=== PATIENT | male | born 1935 | race African-American/Black ===

== ENCOUNTER 2019-05-10 11:15 | Inpatient (IN) | payer OTHER ==
--- NOTE | 2019-05-10 11:51 | PDOC ---
History of Present Illness - General Chief Complaint: Abnormal Lab Results (Outside) Stated Complaint: BLOOD TRANSFUSION Time Seen by Provider: 05/10/19 11:51 - History of Present Illness Initial Comments: 05/10/19 12:14 84 year old man with a history of dementia, venous insufficiency, HLD, GERD, CVA with R sided hemiplegia who presents with downtrending H/H over the past month. Per [facility] the patient's baseline Hb is around 12 to 13. Apr 19, 2019 the patient Hb was 9.6 and yesterday the patient's Hb was 7.6. [facility] does not note dark or tarry stools, denies changes in eating or stooling, denies fever. Patient on ASA and plavix Patient is DNR and DNI ROS - unable to obtaine 2/2 dementia PE GENERAL: demented in no acute distress HEAD: No signs of trauma, normocephalic, atraumatic EYES: EOMI, sclera anicteric, conjunctival pallor ENT: oropharynx clear without exudates. Moist mucosa NECK: Normal ROM, supple LUNGS: No distress, speaks full sentences, clear to auscultation bilaterally HEART: Regular rate and rhythm, normal S1 and S2, no murmurs, rubs or gallops, peripheral pulses normal and equal bilaterally. ABDOMEN: Soft, nontender,No guarding, no rebound. No masses EXTREMITIES : Normal inspection, Normal range of motion, no edema. No clubbing or cyanosis. NEUROLOGICAL: Cranial nerves II through XII grossly intact. Normal speech, no focal sensorimotor deficits SKIN: Warm, Dry, normal turgor, no rashes or lesions noted MDM DDX including but not limited to: LGIB (fissure vs hemorrhoid vs diverticular dz vs Crohns vs UC) vs UGIB (PUD vs gastroesophageal varices vs erosive gastritis/ esophagitis) ED Course: H/H: 7.11/05 positive guiac 2prbc orderd Case discussed with GI Dr. Hernández who recommends PO protonix plan for admission Gabby Siddiqui, PGY2 Emergency Medicine 05/10/19 15:14 Past History - Past Medical History Allergies/Adverse Reactions: Allergies Allergy/AdvReac Type Severity Reaction Status Date / Time No Known Allergies Allergy Verified 05/10/19 12:40 Home Medications: Ambulatory Orders Metoprolol Succinate 25 mg PO DAILY 11/02/18 Aspirin [Aspirin EC] 81 mg PO BIDLASIX 05/10/19 Atorvastatin Calcium 80 mg PO HS 05/10/19 Clopidogrel Bisulfate [Plavix] 75 mg PO DAILY 05/10/19 Pantoprazole Sodium 40 mg PO DAILY 05/10/19 Cardiac Disorders: Yes (Essential HTN, chronic venous insufficiency) CVA: Yes COPD: No Dementia: Yes (unspecified without behaviors) GI Disorders: Yes (GERD) HTN: Yes Hypercholesterolemia: Yes Other medical history: polyarthritis, ocular HTN - Immunization History Immunization Up to Date: Yes - Psycho Social/Smoking Cessation Hx Smoking History: Unknown if ever smoked Hx Alcohol Use: No (unknown) Drug/Substance Use Hx: No (unknown) *Physical Exam - Vital Signs Last Vital Signs Temp Pulse Resp BP Pulse Ox 98.2 F 84 16 117/63 97 05/10/19 11:17 05/10/19 11:17 05/10/19 11:17 05/10/19 11:17 05/10/19 11:17 ED Treatment Course - LABORATORY CBC & Chemistry Diagram: 05/11/19 05:37 05/11/19 05:37 Discharge - Discharge Information Problems reviewed: Yes Clinical Impression/Diagnosis: GI bleed not requiring more than 4 units of blood in 24 hours, ICU, or surgery - Follow up/Referral - Patient Discharge Instructions - Post Discharge Activity
--- NOTE | 2019-05-10 12:03 | PDOC ---
Attending Attestation - Resident Resident Name: Amada Siddiquiie - HPI HPI: 05/10/19 13:40 Pt presents to the ED after sent in from [place] for low hgb. Patient is confused at baseline and unable to give history. - Physicial Exam PE: 05/10/19 13:47 Agree with resident exam. PAteint is alert and in NAD. CV: RRR no M/r/g. Pulm : CTA b/l. Abdomen: soft, non tender, non distended without guarding or rebound. - Medical Decision Making 05/10/19 14:39 Pt presents to the ED after sent in from [place] for GI bleed. LAbs show guiac positive stool and hgb of 7. Will transfuse and admit to medicine for continued management of GIB. Will consult ICU for MICU bed.
[2019-05-10 12:19] LABS: BASO % 1.8 % (0-2.0); EOS % 6.9 % (0-4.5); HEMATOCRIT 22.5 % (35.4-49); HEMOGLOBIN 7.4 GM/dL (11.7-16.9); LYMPH % 22.1 % (8-40); MCH 26.6 pg (25.7-33.7); MCHC 33.1 g/dl (32.0-35.9); MEAN CELL VOLUME 80.5 fl (80-96); MEAN PLT VOLUME 8.6 fl (7.5-11.1); MONO % 15.3 % (3.8-10.2); NEUT % 53.9 % (42.8-82.8); PLATELET COUNT 432 K/MM3 (134-434); RDW 18.2 % (11.9-15.9); WHITE BLOOD COUNT 5.8 K/mm3 (4.0-10.0)
[2019-05-10 12:34] LABS: INR 1.13 (0.83-1.09); PROTHROMBIN TIME (PATIENT) 13.4 SEC (9.7-13.0)
[2019-05-10 13:00] LABS: ALBUMIN 2.8 g/dl (3.4-5.0); BILIRUBIN,TOTAL 0.4 mg/dL (0.2-1); BLOOD UREA NITROGEN 15.6 mg/dL (7-18); CALCIUM 8.4 mg/dL (8.5-10.1); CREATININE 0.9 mg/dL (0.55-1.3); POTASSIUM 4.7 mmol/L (3.5-5.1); TOT PROT 6.3 g/dl (6.4-8.2)
[2019-05-10] MEDS ORDERED: PANTOPRAZOLE 40 MG TABLET (FP) PO ONE (13:06)
[2019-05-10] MEDS ORDERED: PANTOPRAZOLE 40 MG TABLET (FP) ONE ×2 (13:14→13:33)
--- NOTE | 2019-05-10 15:30 | CONSULT ---
Consult Consult Specialty:: ICU Reason for Consultation:: ICU admission - History of Present Illness Chief Complaint: Downtrending Hgb History of Present Illness: Andres Ng is a 84yM w PMHx of dementia, venous insufficiency, HLD, GERD, CVA on ASA and plavix presenting from [facility] with downtrending Hgb. Pt is a poor historian. Per [facility], the patient's baseline Hgb is 12-13. Hgb was 13.9 in September, 11.7 on 04/15, 9.6 on 04/19, and 7.6 yesterday. Pt started on ASA and plavix on 02/15 for 3 months s/p stroke, last given yesterday. [facility] denies dark or tarry stools, fever, or change in appetite. In the ED, Hgb 7.4, guaiac +, started transfusing 1u pRBC. - History Source History Provided By: Transfer Record Limitations to Obtaining History: Dementia - Alcohol/Substance Use Hx Alcohol Use: No (unknown) - Smoking History Smoking history: Unknown if ever smoked Home Medications - Allergies Allergies/Adverse Reactions: Allergies Allergy/AdvReac Type Severity Reaction Status Date / Time No Known Allergies Allergy Verified 05/10/19 12:40 - Home Medications Home Medications: Ambulatory Orders Metoprolol Succinate 25 mg PO DAILY 11/02/18 Aspirin [Aspirin EC] 81 mg PO BIDLASIX 05/10/19 Atorvastatin Calcium 80 mg PO HS 05/10/19 Clopidogrel Bisulfate [Plavix] 75 mg PO DAILY 05/10/19 Pantoprazole Sodium 40 mg PO DAILY 05/10/19 Review of Systems Unable to obtain ROS, reason: dementia Physical Exam Vital Signs: Vital Signs Temperature 98.2 F 05/10/19 11:17 Pulse Rate 84 05/10/19 11:17 Respiratory Rate 16 05/10/19 11:17 Blood Pressure 117/63 05/10/19 11:17 O2 Sat by Pulse Oximetry (%) 97 05/10/19 12:00 Constitutional: Yes: Well Nourished, No Distress, Calm Eyes: Yes: WNL, Conjunctiva Clear, PERRL HENT: Yes: Atraumatic. No: Nasal Congestion, Rhinnorhea Cardiovascular: Yes: WNL, Regular Rate and Rhythm. No: Murmur Respiratory: Yes: WNL, Regular. No: Accessory Muscle Use, Cough, Diminished, Rales, Stridor, Wheezes Gastrointestinal: Yes: Normal Bowel Sounds, Soft. No: Distention, Hernia, Palpable Mass, Tenderness ...Rectal Exam: Yes: Guaiac Positive, Sphincter Tone Normal, Other (no gross blood). No: Hemorrhoids/External, Induration, Mass Extremities: Yes: Other (discolored BLE, no edema). No: Cool Neurological: Yes: Alert (AOx1, follows simple commands) Labs: CBC, BMP 05/10/19 12:00 05/10/19 12:00 Assessment/Plan Andres Ng is a 84yM w PMHx of dementia, venous insufficiency, HLD, GERD, CVA on ASA and plavix presenting from [facility] with downtrending Hgb. Cardiac - Hgb 7.4 - ordered 1u pRBC, repeat H&H after transfusion - trend H&H q6H - continue home metoprolol (with MAP>65), atorvastatin - holding ASA, plavix d/t bleed - DVT ppx Pulm - O2sat wnl on RA, no active issues Neuro - hx CVA, AOx1 - holding AC d/t bleed - pending records from [facility] regarding CVA GI Upper vs lower GI bleed w unknown source - 40 protonix IV qD per Dr Hernández - NPO Elevated LFTs - pending RUQ US - appreciate GI recs - fluids - I/O Endo - no active issues ID - afebrile, no active issues FEN - Fluids: D51/2NS + 20 mEQ @86mL/hr, 1000mL - Electrolyte abnormalities: hypoCl - Nutrition: NPO PPX DVT - SCDs GI - none Dispo - ICU, DNR/DNI (form documented in chart) Urban Barroso EM Resident PGY1
--- NOTE | 2019-05-10 15:44 | HP ---
Admitting History and Physical - Primary Care Physician PCP: Delilah Handley - Admission Chief Complaint: SEND FROM [facility] DUE TO GI BLEED History of Present Illness: Pt seen/ examined in Er. Chart reviewed Case d/w er resident as well as ICU attending. In summary/ Er records and I concur 84 year old man with a history of dementia, venous insufficiency, HLD, GERD, CVA with R sided hemiplegia who presents with downtrending H/H over the past month. Per senior care the patient's baseline Hb is around 12 to 13. Apr 19, 2019 the patient Hb was 9.6 and yesterday the patient's Hb was 7.6. senior care does not note dark or tarry stools, denies changes in eating or stooling, denies fever. Patient on ASA and plavix In Er Guiac +ve Currently Being transfused Got Po protonix Patient is DNR and DNI. Pt poor historian but awake/ comfortable complains of mild abdominal discomfort denies cp/sob. denies headache/ dizziness. History Source: Medical Record Limitations to Obtaining History: Dementia, Poor Historian - Past Medical History CONSTRUCTION DRIVER: Yes: CVA Cardiovascular: Yes: Hyperlipdemia - Advance Directives Advance Directives: Yes: DNR - Smoking History Smoking history: Unknown if ever smoked - Alcohol/Substance Use Hx Alcohol Use: No (unknown) Home Medications - Allergies Allergies/Adverse Reactions: Allergies Allergy/AdvReac Type Severity Reaction Status Date / Time No Known Allergies Allergy Verified 05/10/19 12:40 - Home Medications Home Medications: Ambulatory Orders Metoprolol Succinate 25 mg PO DAILY 11/02/18 Aspirin [Aspirin EC] 81 mg PO BIDLASIX 05/10/19 Atorvastatin Calcium 80 mg PO HS 05/10/19 Clopidogrel Bisulfate [Plavix] 75 mg PO DAILY 05/10/19 Pantoprazole Sodium 40 mg PO DAILY 05/10/19 Review of Systems Findings/Remarks: see [place] Physical Examination Vital Signs: Vital Signs Temperature 98.2 F 05/10/19 11:17 Pulse Rate 84 05/10/19 11:17 Respiratory Rate 16 05/10/19 11:17 Blood Pressure 117/63 05/10/19 11:17 O2 Sat by Pulse Oximetry (%) 97 05/10/19 12:00 Constitutional: Yes: No Distress, Calm Eyes: Yes: Conjunctiva Clear Neck: Yes: Supple Cardiovascular: Yes: Regular Rate and Rhythm Respiratory: Yes: CTA Bilaterally Gastrointestinal: Yes: Soft ...Rectal Exam: Yes: Other (Mild epigastric tenderness +) Edema: No Neurological: Yes: Alert Psychiatric: Yes: Alert Labs: CBC, BMP 05/10/19 12:00 05/10/19 12:00 Imaging - Results EKG: Pending Problem List - Problems (1) GI bleed not requiring more than 4 units of blood in 24 hours, ICU, or surgery Code(s): K92.2 - GASTROINTESTINAL HEMORRHAGE, UNSPECIFIED Assessment/Plan Gi Bleed Evette upper Significantly loss of Hb Recently Transfuse monitor hold asa/ plavix npo for now Mild hydration i/v protonix close monitoring. ICU admit tonight Pt is DNR/DI Will follow cc time approx 45 min.
[2019-05-10] MEDS ORDERED: PANTOPRAZOLE SODIUM 40 MG VIAL IVPUSH SCH (15:45)
[2019-05-10] MEDS ORDERED: D5-1/2NS+20 MEQ KCL - 20 MEQ/1,000 ML INFUS.BAG IV SCH (16:00)
[2019-05-10] MEDS ORDERED: LACTATED RINGERS SOLUTION 1,000 ML/1,000 ML INFUS.BAG IV SCH (16:00)
[2019-05-10] MEDS ORDERED: PANTOPRAZOLE SODIUM 40 MG VIAL ONE (16:12)
--- NOTE | 2019-05-10 17:00 | CON.GI ---
Consult Consult Specialty:: GI Referred by:: Dr. Handley Reason for Consultation:: Anemia - History of Present Illness Chief Complaint: Patient without complaints. Called for anemia History of Present Illness: 84M who had CVA 03/04, treated at [facility] and discharged on ASA/Plavix for 3 months , then to continue ASA 81mg once daily. Hgb per the ICU resident at that time was 15. Currently hgb 7. No overt bleeding. Guaiac positive in the ED. Unclear endoscopic history. - Past Medical History GED TEACHER: Yes: CVA Cardio/Vascular: Yes: Hyperlipdemia - Alcohol/Substance Use Hx Alcohol Use: No (unknown) - Smoking History Smoking history: Unknown if ever smoked - Social History Usual Living Arrangement: [facility] History of Recent Travel: No Home Medications - Allergies Allergies/Adverse Reactions: Allergies Allergy/AdvReac Type Severity Reaction Status Date / Time No Known Allergies Allergy Verified 05/10/19 12:40 - Home Medications Home Medications: Ambulatory Orders Metoprolol Succinate 25 mg PO DAILY 11/02/18 Aspirin [Aspirin EC] 81 mg PO BIDLASIX 05/10/19 Atorvastatin Calcium 80 mg PO HS 05/10/19 Clopidogrel Bisulfate [Plavix] 75 mg PO DAILY 05/10/19 Pantoprazole Sodium 40 mg PO DAILY 05/10/19 Family Medical History Family History: Unable to Obtain Review of Systems Unable to obtain ROS, reason: Patient confused - Review of Systems Gastrointestinal: denies: Abdominal Pain, Melena, Rectal Bleeding Physical Exam-GI Vital Signs: Vital Signs Temperature 98.7 F 05/10/19 14:57 Pulse Rate 85 05/10/19 14:57 Respiratory Rate 16 05/10/19 14:57 Blood Pressure 132/68 05/10/19 14:57 O2 Sat by Pulse Oximetry (%) 98 05/10/19 14:57 Constitutional: Yes: Calm Eyes: No: Sclera Icterus Respiratory: Yes: CTA Bilaterally Gastrointestinal Inspection: No: Distention ...Auscultate: Yes: Normoactive Bowel Sounds ...Palpate: Yes: Soft. No: Tenderness ...Rectal Exam: Yes: Other (No external lesoins, no masses, light aviles stool. No blood/melena) Edema: No (No LE edema) Neurological: Yes: Alert, Confusion Labs: CBC, BMP 05/10/19 12:00 05/10/19 12:00 INR, PTT INR 1.13 (0.83-1.09) H 05/10/19 12:00 Problem List - Problems (1) Anemia Assessment/Plan: With guaiac positive stool reported in ED. No overt bleeding and patient hemodynamically stable: Hold Plavix if feasible. If necessary from a neuro standpoint, OK to continue ASA 81mg once daily in setting of recent CVA as there has been no reported overt bleeding/melena. With Plavix held for 5 days, could consider EGD/Colonoscopy for further evaluation. Will need clarification regarding his decision maker as only friends are listed in his chart (? if he has a health care proxy) Protonix 40mg once daily Advance diet as tolerated Code(s): D64.9 - ANEMIA, UNSPECIFIED
[2019-05-10 20:43] LABS: HEMATOCRIT 29.2 % (35.4-49); HEMOGLOBIN 9.5 GM/dL (11.7-16.9); MCHC 32.4 g/dl (32.0-35.9); MEAN CELL VOLUME 83.3 fl (80-96); MEAN PLT VOLUME 8.9 fl (7.5-11.1); PLATELET COUNT 416 K/MM3 (134-434); RBC 3.51 M/mm3 (4.00-5.60); RDW 17.5 % (11.9-15.9); WHITE BLOOD COUNT 7.2 K/mm3 (4.0-10.0)
[2019-05-10] MEDS: MUPIROCIN 2% TOPICAL OINTMENT FOR DECOLONIZATION NS SCH (21:23)
[2019-05-10] MEDS ORDERED: ATORVASTATIN CA 80 MG TABLET (FP) PO SCH (22:00)
[2019-05-10] MEDS ORDERED: CHLORHEXIDINE GLUCONATE 4% CLEANSER FOR DECOLONIZATION TP SCH (22:00)
[2019-05-11 05:56] LABS: BASO % 1.2 % (0-2.0); HEMATOCRIT 28.8 % (35.4-49); HEMOGLOBIN 9.6 GM/dL (11.7-16.9); LYMPH % 21.7 % (8-40); MCH 27.2 pg (25.7-33.7); MCHC 33.5 g/dl (32.0-35.9); MEAN CELL VOLUME 81.2 fl (80-96); MEAN PLT VOLUME 8.6 fl (7.5-11.1); MONO % 14.1 % (3.8-10.2); PLATELET COUNT 409 K/MM3 (134-434); RBC 3.54 M/mm3 (4.00-5.60); RDW 17.5 % (11.9-15.9); WHITE BLOOD COUNT 6.5 K/mm3 (4.0-10.0)
[2019-05-11 07:24] LABS: ALBUMIN 2.7 g/dl (3.4-5.0); BILIRUBIN,TOTAL 0.6 mg/dL (0.2-1); BLOOD UREA NITROGEN 11.8 mg/dL (7-18); CALCIUM 8.4 mg/dL (8.5-10.1); CREATININE 0.9 mg/dL (0.55-1.3); MAGNESIUM 1.9 mg/dL (1.8-2.4); PHOSPHOROUS 3.1 mg/dL (2.5-4.9); POTASSIUM 4.2 mmol/L (3.5-5.1); TOT PROT 6.2 g/dl (6.4-8.2)
--- NOTE | 2019-05-11 09:46 | PN ---
Teaching Attending Note Name of Resident: Urban Barroso ATTENDING PHYSICIAN STATEMENT I saw and evaluated the patient. I reviewed the resident's note and discussed the case with the resident. I agree with the resident's findings and plan as documented. SUBJECTIVE: Pt seen and examined in the ICU. No bleeding overnight. Transfused 1 unit PRBC and stable H/H. OBJECTIVE: Vital Signs Period Temp Pulse Resp BP Sys/[place] Pulse Ox Last 24 Hr 97.8 F-98.7 F 70-85 16-21 109-147/55-88 97-100 Intake & Output 05/08/19 05/09/19 05/10/19 05/11/19 23:59 23:59 23:59 23:59 Intake Total 350 378 Balance 350 378 Weight 67.1 kg Gen: NAD at rest Heart: RRR Lung: decreased breath sounds at the bases Abd: soft, nontender Ext: no edema CBC, BMP 05/11/19 05:37 05/11/19 05:37 Active Medications Atorvastatin Calcium (Lipitor -) 80 mg PO HS [facility] Last Admin: 05/10/19 21:23 Dose: 80 mg Chlorhexidine Gluconate (Hibiclens For Decolonization -) 1 applic TP HS [facility] Last Admin: 05/10/19 21:23 Dose: 1 applic Potassium Chloride/Dextrose/Sod Cl (D5-1/2ns+20 Meq Kcl -) 20 meq in 1,000 mls @ 83 mls/hr IV ASDIR ISABELL Last Admin: 05/10/19 21:37 Dose: 83 mls/hr Metoprolol Succinate (Toprol Xl -) 25 mg PO DAILY [facility] Mupirocin (Bactroban Ointment (For Decolonization) -) 1 applic NS BID [facility] Stop: 05/15/19 21:59 Last Admin: 05/10/19 21:23 Dose: 1 applic Pantoprazole Sodium (Protonix -) 40 mg PO DAILY [facility] ASSESSMENT AND PLAN: Anemia r/o GI Bleed h/o CVA Hyperlipidemia Dementia - monitor H/H - transfuse as needed - holding antiplatelets - PO as tolerated - DVT prophylaxis - can monitor on floor
[2019-05-11] MEDS: MUPIROCIN 2% TOPICAL OINTMENT FOR DECOLONIZATION NS SCH (09:50)
[2019-05-11] MEDS ORDERED: metoPROLOL SUCCINATE 25 MG TAB.SR.24H (FP) PO SCH (10:00)
[2019-05-11] MEDS ORDERED: METOPROLOL SUCCINATE 25 MG PO SCH (10:00)
[2019-05-11] MEDS ORDERED: PANTOPRAZOLE 40 MG TABLET (FP) PO SCH (10:00)
--- NOTE | 2019-05-11 10:18 | PN ---
Physical Exam: SUBJECTIVE: Patient seen and examined. No acute events overnight. Denies AB pain , bleeding. Plan to transfer to med/surg OBJECTIVE: Vital Signs Period Temp Pulse Resp BP Sys/[place] Pulse Ox Last 24 Hr 97.8 F-98.7 F 70-85 16-21 109-147/55-88 97-100 Constitutional: Yes: Well Nourished, No Distress, Calm Cardiovascular: Yes: WNL, Regular Rate and Rhythm. No: Murmur Respiratory: Yes: WNL, Regular. No: Accessory Muscle Use, Cough, Diminished, Rales, Stridor, Wheezes Gastrointestinal: Yes: Normal Bowel Sounds, Soft. No: Distention, Hernia, Palpable Mass, Tenderness Extremities: Yes: Other (discolored BLE, no edema). No: Cool Neurological: Yes: Alert (AOx1, follows simple commands) Laboratory Results - last 24 hr 05/10/19 05/10/19 05/10/19 12:00 12:00 12:00 WBC 5.8 RBC 2.80 L Hgb 7.4 L Hct 22.5 L MCV 80.5 MCH 26.6 MCHC 33.1 RDW 18.2 H Plt Count 432 MPV 8.6 Absolute Neuts (auto) 3.1 Neutrophils % 53.9 Lymphocytes % 22.1 Monocytes % 15.3 H Eosinophils % 6.9 H Basophils % 1.8 Nucleated RBC % 0 PT with INR 13.40 H INR 1.13 H PTT (Actin FS) 29.0 Sodium Potassium Chloride Carbon Dioxide Anion Gap BUN Creatinine Est GFR (CKD-EPI)AfAm Est GFR (CKD-EPI)NonAf Random Glucose Calcium Phosphorus Magnesium Total Bilirubin AST ALT Alkaline Phosphatase Total Protein Albumin Stool Occult Blood Positive Blood Type Antibody Screen Crossmatch 05/10/19 05/10/19 05/10/19 12:00 12:00 13:00 WBC RBC Hgb Hct MCV MCH MCHC RDW Plt Count MPV Absolute Neuts (auto) Neutrophils % Lymphocytes % Monocytes % Eosinophils % Basophils % Nucleated RBC % PT with INR INR PTT (Actin FS) Sodium 137 Potassium 4.7 Chloride 108 H Carbon Dioxide 24 Anion Gap 5 L BUN 15.6 Creatinine 0.9 Est GFR (CKD-EPI)AfAm 89.95 Est GFR (CKD-EPI)NonAf 77.61 Random Glucose 87 Calcium 8.4 L Phosphorus Magnesium Total Bilirubin 0.4 AST 71 H ALT 76 H Alkaline Phosphatase 336 H Total Protein 6.3 L Albumin 2.8 L Stool Occult Blood Blood Type O POSITIVE O POSITIVE Antibody Screen Negative Crossmatch See Detail 05/10/19 05/10/19 05/11/19 15:00 19:45 05:37 WBC 7.2 6.5 RBC 3.51 L 3.54 L Hgb 9.5 L 9.6 L Hct 29.2 L D 28.8 L MCV 83.3 81.2 MCH 27.0 27.2 MCHC 32.4 33.5 RDW 17.5 H 17.5 H Plt Count 416 409 MPV 8.9 8.6 Absolute Neuts (auto) 3.6 Neutrophils % 55.0 Lymphocytes % 21.7 Monocytes % 14.1 H Eosinophils % 8.0 H Basophils % 1.2 Nucleated RBC % 0 PT with INR INR PTT (Actin FS) Sodium Potassium Chloride Carbon Dioxide Anion Gap BUN Creatinine Est GFR (CKD-EPI)AfAm Est GFR (CKD-EPI)NonAf Random Glucose Calcium Phosphorus Magnesium Total Bilirubin AST ALT Alkaline Phosphatase Total Protein Albumin Stool Occult Blood Negative Blood Type Antibody Screen Crossmatch 05/11/19 05:37 WBC RBC Hgb Hct MCV MCH MCHC RDW Plt Count MPV Absolute Neuts (auto) Neutrophils % Lymphocytes % Monocytes % Eosinophils % Basophils % Nucleated RBC % PT with INR INR PTT (Actin FS) Sodium 136 Potassium 4.2 Chloride 106 Carbon Dioxide 21 Anion Gap 8 BUN 11.8 Creatinine 0.9 Est GFR (CKD-EPI)AfAm 89.95 Est GFR (CKD-EPI)NonAf 77.61 Random Glucose 84 Calcium 8.4 L Phosphorus 3.1 Magnesium 1.9 Total Bilirubin 0.6 AST 64 H ALT 68 H Alkaline Phosphatase 338 H Total Protein 6.2 L Albumin 2.7 L Stool Occult Blood Blood Type Antibody Screen Crossmatch Active Medications Generic Name Dose Route Start Last Admin Trade Name Freq PRN Reason Stop Dose Admin Atorvastatin Calcium 80 mg 05/10/19 22:00 05/10/19 21:23 Lipitor - PO 80 mg HS ISABELL Administration Chlorhexidine Gluconate 1 applic 05/10/19 22:00 05/10/19 21:23 Hibiclens For Decolonization - TP 1 applic HS ISABELL Administration Potassium Chloride/Dextrose/Sod Cl 20 meq in 1,000 mls @ 83 mls/hr 05/10/19 16 :00 05/10/19 21:37 D5-1/2ns+20 Meq Kcl - IV 83 mls/hr ASDIR ISABELL Administration Metoprolol Succinate 25 mg 05/11/19 10:00 05/11/19 09:49 Toprol Xl - PO 25 mg DAILY ISABELL Administration Mupirocin 1 applic 05/10/19 22:00 05/11/19 09:50 Bactroban Ointment (For Decolonization) - NS 05/15/19 21:59 1 applic BID ISABELL Administration Pantoprazole Sodium 40 mg 05/11/19 10:00 05/11/19 09:49 Protonix - PO 40 mg DAILY ISABELL Administration ASSESSMENT/PLAN: Andres Ng is a 84yM w PMHx of dementia, venous insufficiency, HLD, GERD, CVA on ASA and plavix presenting from [facility] with downtrending Hgb. Cardiac - anemia - given 1u pRBC 05/10, Hgb 7.4 to 9.5, stable today - trend H&H q6H - continue home metoprolol (with MAP>65), atorvastatin - holding ASA, plavix d/t bleed - DVT ppx Pulm - O2sat wnl on RA, no active issues Neuro - hx CVA, AOx1 - Head CTA 02/12/19 [facility] showed no blood flow in distal M2 branches of L MCA - holding AC d/t bleed GI Upper vs lower GI bleed w unknown source - no active bleeding - 40 protonix IV qD per Dr Hernández - restarted diet Elevated LFTs - RUQ US 05/10 showed mild diffuse fatty liver, normal gallbladder - monitor - stopped fluids - I/O Endo - no active issues ID - afebrile, no active issues FEN - Fluids: none - Electrolyte abnormalities: none - Nutrition: dysphagia chopped diet PPX DVT - SCDs GI - 40 protonix qD Dispo - transfer to med/surg, DNR/DNI Urban Barroso EM Resident PGY1 Visit type - Emergency Visit Emergency Visit: Yes ED Registration Date: 05/10/19 Care time: The patient presented to the Emergency Department on the above date and was hospitalized for further evaluation of their emergent condition. - New Patient This patient is new to me today: No - Critical Care Critical Care patient: Yes Total Critical Care Time (in minutes): 39 Critical Care Statement: The care of this patient involved high complexity decision making to prevent further life threatening deterioration of the patient 's condition and/or to evaluate & treat vital organ system(s) failure or risk of failure. ATTENDING PHYSICIAN STATEMENT I saw and evaluated the patient. I reviewed the resident's note and discussed the case with the resident. I agree with the resident's findings and plan as documented. SUBJECTIVE: OBJECTIVE: ASSESSMENT AND PLAN:
--- NOTE | 2019-05-11 10:33 | PN ---
Progress Note (short form) - Note Progress Note: no bleeding tolerating diet Vital Signs - 24 hr 05/10/19 05/10/19 05/10/19 11:17 12:00 14:03 Temperature 98.2 F 98.2 F Pulse Rate 84 72 Pulse Rate [ Apical] Respiratory 16 18 Rate Blood Pressure 117/63 123/88 Blood Pressure [Right Arm] O2 Sat by Pulse 97 97 Oximetry (%) 05/10/19 05/10/19 05/10/19 14:42 14:57 17:34 Temperature 98.5 F 98.7 F Pulse Rate 81 Pulse Rate [ 78 85 Apical] Respiratory 16 16 20 Rate Blood Pressure 139/64 Blood Pressure 136/71 132/68 [Right Arm] O2 Sat by Pulse 98 98 98 Oximetry (%) 05/10/19 05/10/19 05/10/19 19:00 21:00 23:00 Temperature 97.8 F Pulse Rate 85 78 73 Pulse Rate [ Apical] Respiratory 21 H 18 20 Rate Blood Pressure 123/88 121/62 128/62 Blood Pressure [Right Arm] O2 Sat by Pulse 100 Oximetry (%) 05/11/19 05/11/19 05/11/19 01:00 03:00 05:00 Temperature 98.0 F 97.9 F Pulse Rate 72 70 71 Pulse Rate [ Apical] Respiratory 18 17 17 Rate Blood Pressure 118/55 L 109/58 L 147/68 Blood Pressure [Right Arm] O2 Sat by Pulse Oximetry (%) Current Medications Generic Name Dose Route Start Last Admin Trade Name Freq PRN Reason Stop Dose Admin Atorvastatin Calcium 80 mg 05/10/19 22:00 05/10/19 21:23 Lipitor - PO 80 mg HS ISABELL Administration Chlorhexidine Gluconate 1 applic 05/10/19 22:00 05/10/19 21:23 Hibiclens For Decolonization - TP 1 applic HS ISABELL Administration Potassium Chloride/Dextrose/Sod Cl 20 meq in 1,000 mls @ 83 mls/hr 05/10/19 16 :00 05/10/19 21:37 D5-1/2ns+20 Meq Kcl - IV 83 mls/hr ASDIR ISABELL Administration Metoprolol Succinate 25 mg 05/11/19 10:00 05/11/19 09:49 Toprol Xl - PO 25 mg DAILY ISABELL Administration Mupirocin 1 applic 05/10/19 22:00 05/11/19 09:50 Bactroban Ointment (For Decolonization) - NS 05/15/19 21:59 1 applic BID ISABELL Administration Pantoprazole Sodium 40 mg 05/11/19 10:00 05/11/19 09:49 Protonix - PO 40 mg DAILY ISABELL Administration Laboratory Results - last 24 hr 05/10/19 05/10/19 05/10/19 12:00 12:00 12:00 WBC 5.8 RBC 2.80 L Hgb 7.4 L Hct 22.5 L MCV 80.5 MCH 26.6 MCHC 33.1 RDW 18.2 H Plt Count 432 MPV 8.6 Absolute Neuts (auto) 3.1 Neutrophils % 53.9 Lymphocytes % 22.1 Monocytes % 15.3 H Eosinophils % 6.9 H Basophils % 1.8 Nucleated RBC % 0 PT with INR 13.40 H INR 1.13 H PTT (Actin FS) 29.0 Sodium Potassium Chloride Carbon Dioxide Anion Gap BUN Creatinine Est GFR (CKD-EPI)AfAm Est GFR (CKD-EPI)NonAf Random Glucose Calcium Phosphorus Magnesium Total Bilirubin AST ALT Alkaline Phosphatase Total Protein Albumin Stool Occult Blood Positive Blood Type Antibody Screen Crossmatch 05/10/19 05/10/19 05/10/19 12:00 12:00 13:00 WBC RBC Hgb Hct MCV MCH MCHC RDW Plt Count MPV Absolute Neuts (auto) Neutrophils % Lymphocytes % Monocytes % Eosinophils % Basophils % Nucleated RBC % PT with INR INR PTT (Actin FS) Sodium 137 Potassium 4.7 Chloride 108 H Carbon Dioxide 24 Anion Gap 5 L BUN 15.6 Creatinine 0.9 Est GFR (CKD-EPI)AfAm 89.95 Est GFR (CKD-EPI)NonAf 77.61 Random Glucose 87 Calcium 8.4 L Phosphorus Magnesium Total Bilirubin 0.4 AST 71 H ALT 76 H Alkaline Phosphatase 336 H Total Protein 6.3 L Albumin 2.8 L Stool Occult Blood Blood Type O POSITIVE O POSITIVE Antibody Screen Negative Crossmatch See Detail 05/10/19 05/10/19 05/11/19 15:00 19:45 05:37 WBC 7.2 6.5 RBC 3.51 L 3.54 L Hgb 9.5 L 9.6 L Hct 29.2 L D 28.8 L MCV 83.3 81.2 MCH 27.0 27.2 MCHC 32.4 33.5 RDW 17.5 H 17.5 H Plt Count 416 409 MPV 8.9 8.6 Absolute Neuts (auto) 3.6 Neutrophils % 55.0 Lymphocytes % 21.7 Monocytes % 14.1 H Eosinophils % 8.0 H Basophils % 1.2 Nucleated RBC % 0 PT with INR INR PTT (Actin FS) Sodium Potassium Chloride Carbon Dioxide Anion Gap BUN Creatinine Est GFR (CKD-EPI)AfAm Est GFR (CKD-EPI)NonAf Random Glucose Calcium Phosphorus Magnesium Total Bilirubin AST ALT Alkaline Phosphatase Total Protein Albumin Stool Occult Blood Negative Blood Type Antibody Screen Crossmatch 05/11/19 05:37 WBC RBC Hgb Hct MCV MCH MCHC RDW Plt Count MPV Absolute Neuts (auto) Neutrophils % Lymphocytes % Monocytes % Eosinophils % Basophils % Nucleated RBC % PT with INR INR PTT (Actin FS) Sodium 136 Potassium 4.2 Chloride 106 Carbon Dioxide 21 Anion Gap 8 BUN 11.8 Creatinine 0.9 Est GFR (CKD-EPI)AfAm 89.95 Est GFR (CKD-EPI)NonAf 77.61 Random Glucose 84 Calcium 8.4 L Phosphorus 3.1 Magnesium 1.9 Total Bilirubin 0.6 AST 64 H ALT 68 H Alkaline Phosphatase 338 H Total Protein 6.2 L Albumin 2.7 L Stool Occult Blood Blood Type Antibody Screen Crossmatch S1 S2 RRR Lungs clear Abd-soft, NT No edema PLAN check HCT continue with PPI start diet
[2019-05-11 14:11] LABS: HEMATOCRIT 29.1 % (35.4-49); HEMOGLOBIN 9.3 GM/dL (11.7-16.9); MCH 26.5 pg (25.7-33.7); MCHC 31.8 g/dl (32.0-35.9); MEAN CELL VOLUME 83.3 fl (80-96); MEAN PLT VOLUME 8.8 fl (7.5-11.1); PLATELET COUNT 416 K/MM3 (134-434); RDW 17.7 % (11.9-15.9); WHITE BLOOD COUNT 7.1 K/mm3 (4.0-10.0)
[2019-05-11 14:21] VITALS: BMI 24.4
--- NOTE | 2019-05-11 14:53 | EKG ---
Test Reason : Blood Pressure : / mmHG Vent. Rate : 079 BPM Atrial Rate : 079 BPM P-R Int : 182 ms QRS Dur : 088 ms QT Int : 392 ms P-R-T Axes : 072 -26 056 degrees QTc Int : 449 ms NORMAL SINUS RHYTHM POSSIBLE LEFT ATRIAL ENLARGEMENT BORDERLINE ECG NO PREVIOUS ECGS AVAILABLE Confirmed by ANUJ WATKINS, BERTA ([id number] on 05/11/2019 2:52:40 PM Referred By: Confirmed By:BERTA LESLIE MD
[2019-05-11 18:46] LABS: HEMATOCRIT 29.8 % (35.4-49); HEMOGLOBIN 9.5 GM/dL (11.7-16.9); MCH 26.4 pg (25.7-33.7); MCHC 31.9 g/dl (32.0-35.9); MEAN CELL VOLUME 82.8 fl (80-96); MEAN PLT VOLUME 9.1 fl (7.5-11.1); PLATELET COUNT 442 K/MM3 (134-434); RDW 17.7 % (11.9-15.9); WHITE BLOOD COUNT 7.3 K/mm3 (4.0-10.0)
[2019-05-11] MEDS: ATORVASTATIN CA 80 MG TABLET (FP) PO SCH (21:46)
[2019-05-11] MEDS ORDERED: MUPIROCIN 2% TOPICAL OINTMENT FOR DECOLONIZATION NS SCH (22:00)
[2019-05-12 08:11] LABS: HEMATOCRIT 30.8 % (35.4-49); HEMOGLOBIN 10.2 GM/dL (11.7-16.9); MCHC 33.1 g/dl (32.0-35.9); MEAN CELL VOLUME 81.5 fl (80-96); MEAN PLT VOLUME 8.9 fl (7.5-11.1); PLATELET COUNT 436 K/MM3 (134-434); RBC 3.78 M/mm3 (4.00-5.60); WHITE BLOOD COUNT 7.4 K/mm3 (4.0-10.0)
[2019-05-12] MEDS: PANTOPRAZOLE 40 MG TABLET (FP) PO SCH (09:33)
[2019-05-12] MEDS: metoPROLOL SUCCINATE 25 MG TAB.SR.24H (FP) PO SCH (09:34)
--- NOTE | 2019-05-12 10:37 | PN ---
Progress Note (short form) - Note Progress Note: no bleeding feels well Vital Signs - 24 hr 05/11/19 05/11/19 05/12/19 20:26 21:00 07:30 Temperature 98.5 F 97.8 F Pulse Rate 74 94 H Respiratory 20 20 18 Rate Blood Pressure 126/68 127/93 O2 Sat by Pulse 100 Oximetry (%) 05/12/19 05/12/19 05/12/19 09:00 09:13 14:23 Temperature 98.1 F 98 F Pulse Rate 84 75 Respiratory 18 18 20 Rate Blood Pressure 155/75 125/68 O2 Sat by Pulse 96 Oximetry (%) Current Medications Generic Name Dose Route Start Last Admin Trade Name Freq PRN Reason Stop Dose Admin Atorvastatin Calcium 80 mg 05/11/19 22:00 05/11/19 21:46 Lipitor - PO 80 mg HS ISABELL Administration Metoprolol Succinate 25 mg 05/12/19 10:00 05/12/19 09:34 Toprol Xl - PO 25 mg DAILY ISABELL Administration Pantoprazole Sodium 40 mg 05/12/19 10:00 05/12/19 09:33 Protonix - PO 40 mg DAILY ISABELL Administration Laboratory Results - last 24 hr 05/11/19 05/12/19 05/12/19 17:45 07:28 12:16 WBC 7.3 7.4 7.5 RBC 3.60 L 3.78 L 3.86 L Hgb 9.5 L 10.2 L 10.1 L Hct 29.8 L 30.8 L 32.0 L MCV 82.8 81.5 82.8 MCH 26.4 27.0 26.3 MCHC 31.9 L 33.1 31.7 L RDW 17.7 H 18.0 H 18.5 H Plt Count 442 H 436 H 446 H MPV 9.1 8.9 9.0 [id number] Lungs clear Abd-soft, NT no edema PLAN HCT stable no active bleeding DC planning-- no decision made by family/HCP about GI work up NH to get in contact with HCP- GI work uup as outpt Problem List - Problems (1) Anemia Code(s): D64.9 - ANEMIA, UNSPECIFIED (2) GI bleed not requiring more than 4 units of blood in 24 hours, ICU, or surgery Code(s): K92.2 - GASTROINTESTINAL HEMORRHAGE, UNSPECIFIED
--- NOTE | 2019-05-12 11:46 | PN ---
Progress Note (short form) - Note Progress Note: PULMONARY No bleeding noted. H/H has been stable. Vital Signs Period Temp Pulse Resp BP Sys/[place]ak Pulse Ox Last 24 Hr 97.8 F-98.5 F 73-94 18-20 126-155/68-93 96-100 Gen: NAD at rest Heart: RRR Lung: decreased breath sounds at the bases Abd: soft, nontender Ext: no edema CBC, BMP 05/12/19 07:28 05/11/19 05:37 Active Medications Atorvastatin Calcium (Lipitor -) 80 mg PO HS [facility] Last Admin: 05/11/19 21:46 Dose: 80 mg Metoprolol Succinate (Toprol Xl -) 25 mg PO DAILY [facility] Last Admin: 05/12/19 09:34 Dose: 25 mg Pantoprazole Sodium (Protonix -) 40 mg PO DAILY [facility] Last Admin: 05/12/19 09:33 Dose: 40 mg A/P Anemia r/o GI Bleed h/o CVA Hyperlipidemia Dementia - monitor H/H - transfuse as needed - holding antiplatelets - PO as tolerated - DVT prophylaxis
[2019-05-12 12:46] LABS: HEMOGLOBIN 10.1 GM/dL (11.7-16.9); MCH 26.3 pg (25.7-33.7); MCHC 31.7 g/dl (32.0-35.9); MEAN CELL VOLUME 82.8 fl (80-96); PLATELET COUNT 446 K/MM3 (134-434); RBC 3.86 M/mm3 (4.00-5.60); RDW 18.5 % (11.9-15.9); WHITE BLOOD COUNT 7.5 K/mm3 (4.0-10.0)
[2019-05-12 18:09] LABS: HEMATOCRIT 32.9 % (35.4-49); HEMOGLOBIN 10.5 GM/dL (11.7-16.9); MCH 26.1 pg (25.7-33.7); MCHC 31.8 g/dl (32.0-35.9); MEAN PLT VOLUME 8.8 fl (7.5-11.1); PLATELET COUNT 466 K/MM3 (134-434); RBC 4.01 M/mm3 (4.00-5.60); RDW 18.4 % (11.9-15.9); WHITE BLOOD COUNT 8.1 K/mm3 (4.0-10.0)
[2019-05-12] MEDS: ATORVASTATIN CA 80 MG TABLET (FP) PO SCH (23:02)
[2019-05-13 07:37] LABS: HEMATOCRIT 33.6 % (35.4-49); HEMOGLOBIN 10.7 GM/dL (11.7-16.9); MCH 26.3 pg (25.7-33.7); MCHC 31.9 g/dl (32.0-35.9); MEAN CELL VOLUME 82.3 fl (80-96); MEAN PLT VOLUME 9.2 fl (7.5-11.1); PLATELET COUNT 444 K/MM3 (134-434); RBC 4.08 M/mm3 (4.00-5.60); RDW 18.7 % (11.9-15.9); WHITE BLOOD COUNT 7.9 K/mm3 (4.0-10.0)
[2019-05-13] MEDS: PANTOPRAZOLE 40 MG TABLET (FP) PO SCH (10:10)
[2019-05-13] MEDS: metoPROLOL SUCCINATE 25 MG TAB.SR.24H (FP) PO SCH (10:10)
--- NOTE | 2019-05-13 10:44 | PN ---
Progress Note (short form) - Note Progress Note: Resting in NAD. No occult bleeding reported. No acute events overnight. Intake & Output 05/10/19 05/11/19 05/12/19 05/13/19 23:59 23:59 23:59 23:59 Intake Total 350 468 630 Balance 350 468 630 Weight 147 lb 14.883 oz 147 lb Last Vital Signs Temp Pulse Resp BP Pulse Ox 98.1 F 88 20 126/63 96 05/12/19 20:16 05/12/19 20:16 05/12/19 20:16 05/12/19 20:16 05/12/19 09:00 Active Medications Atorvastatin Calcium (Lipitor -) 80 mg PO [facility] Last Admin: 05/12/19 23:02 Dose: 80 mg Metoprolol Succinate (Toprol Xl -) 25 mg PO DAILY [facility]S [facility]CLUDE 234 BEDS AT THE [facility] Last Admin: 05/13/19 10:10 Dose: 25 mg Pantoprazole Sodium (Protonix -) 40 mg PO DAILY COUNTS INCLUDE 234 BEDS AT THE [facility] Last Admin: 05/13/19 10:10 Dose: 40 mg Gen: NAD at rest Heart: RRR Lung: decreased breath sounds at the bases Abd: soft, nontender Ext: no edema Laboratory Results - last 24 hr 05/12/19 05/12/19 05/13/19 12:16 17:59 07:00 WBC 7.5 8.1 7.9 RBC 3.86 L 4.01 4.08 Hgb 10.1 L 10.5 L 10.7 L Hct 32.0 L 32.9 L 33.6 L MCV 82.8 82.0 82.3 MCH 26.3 26.1 26.3 MCHC 31.7 L 31.8 L 31.9 L RDW 18.5 H 18.4 H 18.7 H Plt Count 446 H 466 H 444 H MPV 9.0 8.8 9.2 A/P Anemia r/o GI Bleed h/o CVA Hyperlipidemia Dementia - monitor H/H - transfuse as needed - holding antiplatelets - PO as tolerated - DVT prophylaxis - DC planning Dr Brewer
[2019-05-13 12:48] LABS: HEMATOCRIT 33.6 % (35.4-49); HEMOGLOBIN 10.7 GM/dL (11.7-16.9); MCH 26.5 pg (25.7-33.7); MCHC 31.7 g/dl (32.0-35.9); MEAN CELL VOLUME 83.4 fl (80-96); MEAN PLT VOLUME 9.2 fl (7.5-11.1); PLATELET COUNT 465 K/MM3 (134-434); RBC 4.03 M/mm3 (4.00-5.60); RDW 18.4 % (11.9-15.9); WHITE BLOOD COUNT 7.9 K/mm3 (4.0-10.0)
--- NOTE | 2019-05-13 17:43 | PN ---
Progress Note (short form) - Note Progress Note: pt seen/ examined. chart reviewed comfortable. Vital Signs Temp 98.4 F 05/13/19 14:00 Pulse 68 05/13/19 14:00 Resp 18 05/13/19 14:00 BP 128/67 05/13/19 14:00 Pulse Ox 96 05/12/19 09:00 Intake & Output 05/12/19 05/13/19 05/13/19 23:59 11:59 23:59 Intake Total 330 Balance 330 Intake: Oral 330 Other: Voiding Method Incontinent Incontinent Incontinent # Unmeasured Voids Void 1 1 2 Bowel Movement Yes Active Medications Atorvastatin Calcium (Lipitor -) 80 mg PO HS [facility] Last Admin: 05/12/19 23:02 Dose: 80 mg Metoprolol Succinate (Toprol Xl -) 25 mg PO DAILY [facility] Last Admin: 05/13/19 10:10 Dose: 25 mg Pantoprazole Sodium (Protonix -) 40 mg PO DAILY [facility] Last Admin: 05/13/19 10:10 Dose: 40 mg CBC, BMP 05/13/19 12:12 05/11/19 05:37 Hepatic Panel Total Bilirubin 0.6 mg/dL (0.2-1) 05/11/19 05:37 AST 64 U/L (15-37) H 05/11/19 05:37 ALT 68 U/L (13-61) H 05/11/19 05:37 Alkaline Phosphatase 338 U/L (45-117) H 05/11/19 05:37 Albumin 2.7 g/dl (3.4-5.0) L 05/11/19 05:37 Physical Exam [id number] Lungs clear Abd-soft, NT no edema Neuro- awake/ right side weakness PLAN HCT stable no active bleeding DC planning-- no decision made by family/HCP about GI work up NH to get in contact with HCP- GI work up as outpt Mild elevation of lfts monitor labs tomorrow If stable - d/c in am d/w rn also Problem List - Problems (1) Anemia Code(s): D64.9 - ANEMIA, UNSPECIFIED (2) GI bleed not requiring more than 4 units of blood in 24 hours, ICU, or surgery Code(s): K92.2 - GASTROINTESTINAL HEMORRHAGE, UNSPECIFIED Problem List - Problems (1) GI bleed not requiring more than 4 units of blood in 24 hours, ICU, or surgery Code(s): K92.2 - GASTROINTESTINAL HEMORRHAGE, UNSPECIFIED
[2019-05-13] MEDS: ASPIRIN COATED 81 MG TABLET.EC PO SCH (18:07)
[2019-05-13 18:53] LABS: HEMATOCRIT 31.4 % (35.4-49); MCH 26.1 pg (25.7-33.7); MCHC 31.8 g/dl (32.0-35.9); MEAN CELL VOLUME 82.1 fl (80-96); MEAN PLT VOLUME 9.3 fl (7.5-11.1); PLATELET COUNT 437 K/MM3 (134-434); RBC 3.82 M/mm3 (4.00-5.60); WHITE BLOOD COUNT 7.8 K/mm3 (4.0-10.0)
--- NOTE | 2019-05-13 20:00 | PN.GI ---
GI Progress Note Subjective: No acute events No bleeding Per primary notes, NH to get in touch w/ NH - Objective Vital Signs: Vital Signs Temperature 98.4 F 05/13/19 14:00 Pulse Rate 68 05/13/19 14:00 Respiratory Rate 18 05/13/19 14:00 Blood Pressure 128/67 05/13/19 14:00 O2 Sat by Pulse Oximetry (%) 96 05/12/19 09:00 Constitutional: Calm Eyes: No: Sclera Icterus Cardiovascular: Yes: Regular Rate and Rhythm Respiratory: Yes: Diminished (at bases b/l) Gastrointestinal Inspection: No: Distention ...Auscultate: Yes: Normoactive Bowel Sounds ...Palpate: Yes: Soft. No: Hepatomegaly, Splenomegaly, Tenderness ...Percussion: No: Tympanitic Neurological: Yes: Alert, Confusion Labs: CBC, BMP 05/13/19 18:00 05/11/19 05:37 INR, PTT INR 1.13 (0.83-1.09) H 05/10/19 12:00 Problem List - Problems (1) Anemia Assessment/Plan: H/H remains stable. If decision made re: procedures, plan for 05/15, otherwise O/P W/U Continue protonix 40mg daily Code(s): D64.9 - ANEMIA, UNSPECIFIED
[2019-05-13] MEDS: ATORVASTATIN CA 80 MG TABLET (FP) PO SCH (21:13)
[2019-05-14 07:47] LABS: BASO % 1.4 % (0-2.0); EOS % 8.4 % (0-4.5); HEMATOCRIT 31.1 % (35.4-49); HEMOGLOBIN 10.1 GM/dL (11.7-16.9); LYMPH % 20.8 % (8-40); MCH 26.7 pg (25.7-33.7); MCHC 32.5 g/dl (32.0-35.9); MEAN CELL VOLUME 81.9 fl (80-96); MEAN PLT VOLUME 9.1 fl (7.5-11.1); MONO % 14.2 % (3.8-10.2); NEUT % 55.2 % (42.8-82.8); PLATELET COUNT 430 K/MM3 (134-434); RDW 18.9 % (11.9-15.9); WHITE BLOOD COUNT 8.3 K/mm3 (4.0-10.0)
[2019-05-14 08:06] LABS: ALBUMIN 2.8 g/dl (3.4-5.0); BILIRUBIN,TOTAL 0.6 mg/dL (0.2-1); BLOOD UREA NITROGEN 9.8 mg/dL (7-18); CALCIUM 8.5 mg/dL (8.5-10.1); POTASSIUM 4.2 mmol/L (3.5-5.1); TOT PROT 6.4 g/dl (6.4-8.2)
[2019-05-14] MEDS: PANTOPRAZOLE 40 MG TABLET (FP) PO SCH (09:30)
[2019-05-14] MEDS: ASPIRIN COATED 81 MG TABLET.EC PO SCH (09:30)
[2019-05-14] MEDS: metoPROLOL SUCCINATE 25 MG TAB.SR.24H (FP) PO SCH (09:30)
--- NOTE | 2019-05-14 10:51 | PN ---
Progress Note (short form) - Note Progress Note: Resting in NAD. No occult bleeding reported. No acute events overnight. Intake & Output 05/11/19 05/12/19 05/13/19 05/14/19 23:59 23:59 23:59 23:59 Intake Total 468 630 320 Balance 468 630 320 Weight 147 lb Last Vital Signs Temp Pulse Resp BP Pulse Ox 97.6 F 85 18 131/83 96 05/14/19 06:00 05/14/19 06:00 05/14/19 06:00 05/14/19 06:00 05/13/19 21:00 Active Medications Aspirin (Ecotrin -) 81 mg PO DAILY [facility] Last Admin: 05/14/19 09:30 Dose: 81 mg Atorvastatin Calcium (Lipitor -) 80 mg PO HS [facility] Last Admin: 05/13/19 21:13 Dose: 80 mg Metoprolol Succinate (Toprol Xl -) 25 mg PO DAILY [facility] Last Admin: 05/14/19 09:30 Dose: 25 mg Pantoprazole Sodium (Protonix -) 40 mg PO DAILY [facility] Last Admin: 05/14/19 09:30 Dose: 40 mg Gen: NAD at rest Heart: RRR Lung: decreased breath sounds at the bases Abd: soft, nontender Ext: no edema Laboratory Results - last 24 hr 05/10/19 05/13/19 05/13/19 12:00 12:12 18:00 WBC 7.9 7.8 RBC 4.03 3.82 L Hgb 10.7 L 10.0 L Hct 33.6 L 31.4 L MCV 83.4 82.1 MCH 26.5 26.1 MCHC 31.7 L 31.8 L RDW 18.4 H 19.0 H Plt Count 465 H 437 H MPV 9.2 9.3 Absolute Neuts (auto) Neutrophils % Lymphocytes % Monocytes % Eosinophils % Basophils % Nucleated RBC % Sodium Potassium Chloride Carbon Dioxide Anion Gap BUN Creatinine Est GFR (CKD-EPI)AfAm Est GFR (CKD-EPI)NonAf Random Glucose Calcium Total Bilirubin GGT AST ALT Alkaline Phosphatase Total Protein Albumin Blood Type O POSITIVE Antibody Screen Negative Crossmatch See Detail 05/14/19 05/14/19 06:50 06:50 WBC 8.3 RBC 3.80 L Hgb 10.1 L Hct 31.1 L MCV 81.9 MCH 26.7 MCHC 32.5 RDW 18.9 H Plt Count 430 MPV 9.1 Absolute Neuts (auto) 4.6 Neutrophils % 55.2 Lymphocytes % 20.8 Monocytes % 14.2 H Eosinophils % 8.4 H Basophils % 1.4 Nucleated RBC % 0 Sodium 135 L Potassium 4.2 Chloride 105 Carbon Dioxide 22 Anion Gap 9 BUN 9.8 Creatinine 1.0 Est GFR (CKD-EPI)AfAm 79.19 Est GFR (CKD-EPI)NonAf 68.33 Random Glucose 84 Calcium 8.5 Total Bilirubin 0.6 GGT 982 H AST 74 H ALT 75 H Alkaline Phosphatase 418 H Total Protein 6.4 Albumin 2.8 L Blood Type Antibody Screen Crossmatch A/P Anemia r/o GI Bleed h/o CVA Hyperlipidemia Dementia - monitor H/H - Normal transfusion thresholds - holding antiplatelets - PO as tolerated - DVT prophylaxis - DC planning Dr Brewer
--- NOTE | 2019-05-14 11:14 | DS ---
Physical Examination Vital Signs: Vital Signs Temperature 97.6 F 05/14/19 06:00 Pulse Rate 85 05/14/19 06:00 Respiratory Rate 18 05/14/19 06:00 Blood Pressure 131/83 05/14/19 06:00 O2 Sat by Pulse Oximetry (%) 96 05/13/19 21:00 Constitutional: Yes: No Distress, Calm Cardiovascular: Yes: Regular Rate and Rhythm Respiratory: Yes: CTA Bilaterally Gastrointestinal: Yes: Normal Bowel Sounds, Soft. No: Tenderness Edema: No Labs: CBC, BMP 05/14/19 06:50 05/14/19 06:50 Discharge Summary Problems reviewed: Yes Reason For Visit: GASTROINTESTINAL HEMORRHAGE Current Active Problems Anemia (Acute) GI bleed not requiring more than 4 units of blood in 24 hours, ICU, or surgery ( Acute) Hospital Course: Admitted for acute severe anemia Admitted initially in ICU was on protonix iv received 1 unit PRBC sono abd-- mild fatty liver No active bleeding Pt was evaluated by GI tolerating diet pt is better clinically will need outpt follow up with GI for endoscopic procedures needs consents from HCP Condition: Improved - Instructions Disposition: [facility]USTODIAL [facility]ILITY - Home Medications Comprehensive Discharge Medication List: Ambulatory Orders Metoprolol Succinate 25 mg PO DAILY 11/02/18 Aspirin [Aspirin EC] 81 mg PO BIDLASIX 05/10/19 Atorvastatin Calcium 80 mg PO HS 05/10/19 Clopidogrel Bisulfate [Plavix] 75 mg PO DAILY 05/10/19 Pantoprazole Sodium 40 mg PO DAILY 05/10/19
[2019-05-14 12:01] VITALS: BP 130/70; PULSE 78; TEMP 98.7
== END 2019-05-14 17:58 | DRG 812 ==
LOC: JER 11:15 → JERBED 14:03 → JICU 16:54 → J6S 05-11 12:57
PROVIDERS: ADMIT Internal Medicine; ATTEND Internal Medicine
PROC: 30233N1 Transfusion of Nonautologous Red Blood Cells into Peripheral Vein, Percutaneous Approach (ICD-10-PCS; principal; 2019-05-10)
DX: D64.9 Anemia, unspecified (principal); I69.351 Hemiplegia and hemiparesis following cerebral infarction affecting right dominant side; K92.2 Gastrointestinal hemorrhage, unspecified; E78.5 Hyperlipidemia, unspecified; K21.9 Gastro-esophageal reflux disease without esophagitis; I87.2 Venous insufficiency (chronic) (peripheral); Z66 Do not resuscitate; I10 Essential (primary) hypertension; M13.0 Polyarthritis, unspecified; H40.059 Ocular hypertension, unspecified eye; F03.90 Unspecified dementia, unspecified severity, without behavioral disturbance, psychotic disturbance, mood disturbance, and anxiety; K76.0 Fatty (change of) liver, not elsewhere classified
CPT/HCPCS: 36415; 36430; 36511; 71045-TC-FY; 76705-TC; 80053; 82272; 82977; 83735; 84100; 85025; 85027; 85610; 85730; 86850; 86900; 86901; 86922; 93005; 93010; 99285-25; P9038; P9058